=== PATIENT | male | born 1955 | race African-American/Black ===

== ENCOUNTER 2019-07-31 21:53 | Emergency (ER) | payer MEDICAID, OTHER ==
[~2019-07-31] VITALS: Ht 175.3 cm; Wt 106.6 kg
[2019-08-01] MEDS ORDERED: ONDANSETRON HCL 4 MG/2 ML VIAL IV ONE (00:15)
[2019-08-01] MEDS ORDERED: MORPHINE SULFATE 4 MG/ML SYR/VIAL IV ONE ×2 (00:15→01:45)
[2019-08-01] MEDS ORDERED: ETOMIDATE (2MG/ML) 20ML VIAL IV ONE (00:30)
[2019-08-01] MEDS: MORPHINE SULFATE 4 MG/ML SYR/VIAL ONE ×2 (00:33→01:02)
[2019-08-01] MEDS ORDERED: LORazepam 2MG/ML-1ML VIAL ONE (00:36)
[2019-08-01] MEDS: HALOPERIDOL LACTATE 5 MG/ML INJ VIAL ONE ×2 (00:41→01:05)
[2019-08-01] MEDS: diphenhdrAMINE HCL 50 MG/1 ML VL ONE ×2 (00:42→01:05)
[2019-08-01] MEDS ORDERED: HALOPERIDOL LACTATE 5 MG/ML INJ VIAL IM ONE (01:45)
[2019-08-01] MEDS ORDERED: diphenhdrAMINE HCL 50 MG/1 ML VL IV ONE (01:45)
[2019-08-01] MEDS ORDERED: LORazepam 2MG/ML-1ML VIAL IV ONE (01:45)
[2019-08-01] MEDS ORDERED: SODIUM CHLORIDE 0.9% 1,000 ML IV ONE ×3 (02:00→03:30)
[2019-08-01] MEDS ORDERED: THIAMINE 100mg/ml INJ (200mg/2ml VIAL) IV ONE ×2 (02:00→03:15)
[2019-08-01 02:30] VITALS: BP 153/98
[2019-08-01] MEDS ORDERED: FOLIC ACID 1 MG, MULTIPLE VITAMIN 10 ML, MAGNESIUM SULF SDV 50% 8 MEQ, THIAMINE INJ 100... INJ SCH ×10 (12:00)
== END 2019-08-01 04:33 | disposition home or self-care (01) ==
LOC: ER 21:57
DX: S43.004A Unspecified dislocation of right shoulder joint, initial encounter (principal); I10 Essential (primary) hypertension; Y04.0XXA Assault by unarmed brawl or fight, initial encounter; Y93.89 Activity, other specified; Y92.89 Other specified places as the place of occurrence of the external cause; Y99.8 Other external cause status
CPT/HCPCS: 23650; 73020; 73030; 96365; 96372; 96375; 96376; 99152; 99153; 99285; J1200; J1630; J2060; J2270; J2405; J3411; J3475; J7030

== ENCOUNTER 2020-08-10 01:55 | Inpatient (IN) | payer MEDICARE, MEDICAID ==
[~2020-08-10] VITALS: Ht 175.3 cm; Wt 107.8 kg
[2020-08-10 02:46] LABS: Basophils # (auto) 0.1 10 ^3/uL (0-0.2); Basophils % (auto) 0.9 % (0.0-2.0); Eosinophils # (auto) 0.1 10 ^3/uL (0-0.8); Eosinophils % (auto) 1.3 % (0.0-7.0); Hematocrit 40.7 % (41.0-53.0); Hemoglobin 13.2 g/dL (13.5-17.5); Lymphocytes # (auto) 1.6 10 ^3/uL (0.4-5.4); Lymphocytes % (auto) 20.7 % (10.0-50.0); Mean Corpuscular Hemoglobin 29.2 pg (28.0-32.0); Mean Corpuscular Hgb Conc. 32.5 g/dL (32.0-36.0); Mean Corpuscular Volume 89.8 fL (80.0-100.0); Monocytes # (auto) 0.9 10 ^3/uL (0-1.3); Monocytes % (auto) 12.2 % (0.0-12.0); Neutrophils # (auto) 4.9 10 ^3/uL (1.6-8.6); Neutrophils % (auto) 64.9 % (37.0-80.0); Nucleated Red Blood Cells % 0.1 %; Platelet Count (auto) 232 10^3/uL (140-450); Red Blood Cells 4.53 10^6/uL (4.5-5.90); Red Cell Distribution Width 18.3 % (11.8-14.3); White Blood Cell 7.5 10^3/uL (4.4-10.8)
[2020-08-10 03:04] LABS: Albumin 2.8 g/dL (3.4-5.0); BUN/Creatinine Ratio 14.1; Calcium 8.8 mg/dL (8.5-10.1); Potassium 4.4 mmol/L (3.5-5.1)
[2020-08-10 03:09] LABS: Bilirubin, Total 0.9 mg/dL (0.2-1.0); Total Protein 7.2 g/dL (6.4-8.2)
[2020-08-10 03:10] LABS: INR 1.28 (0.9-1.15); Partial Thromboplastin Time 26.9 sec (23.0-31.2)
[2020-08-10] MEDS ORDERED: ACETAMINOPHEN 325 MG TAB PO PRN (05:45)
[2020-08-10] MEDS ORDERED: NITROGLYCERIN 0.4 MG SL TAB SL PRN (05:45)
[2020-08-10] MEDS ORDERED: FUROSEMIDE 20 MG/2 ML VIAL IV ONE (05:45)
[2020-08-10] MEDS ORDERED: TEMAZEPAM 15 MG CAP PO PRN (05:45)
[2020-08-10] MEDS ORDERED: ONDANSETRON HCL 4 MG/2 ML VIAL IV PRN (05:45)
[2020-08-10] MEDS ORDERED: MORPHINE SULF INJ 2 MG/ML SYRINGE 1ML IV PRN (05:45)
[2020-08-10] MEDS ORDERED: FUROSEMIDE 40 MG/4 ML VIAL IV ONE (06:00)
[2020-08-10 07:47] LABS: Urine Bacteria NONE SEEN /hpf (None Seen); Urine Blood 3+ /uL (Negative); Urine Budding Yeast OCCASIONAL /hpf (None Seen); Urine Mucus FEW (None Seen); Urine Specific Gravity 1.015 (1.001-1.035); Urine WBC 1 /hpf (0 - 3)
[2020-08-10] MEDS ORDERED: amLODIPine BESYLATE 5 MG TAB PO SCH (10:00)
[2020-08-10] MEDS ORDERED: FUROSEMIDE 40 MG TAB PO SCH (10:00)
[2020-08-10] MEDS: AZITHROMYCIN 500MG/ 250ML 250 ML IV SCH (10:44)
[2020-08-10] MEDS: CARVEDILOL 3.125 MG TAB PO SCH (10:44)
[2020-08-10] MEDS: ENOXAPARIN SOD 30 MG/0.3 ML SYRINGE SC SCH (10:45)
[2020-08-10] MEDS ORDERED: DEXTROSE (50%) 50ML SYRG IV PRN (15:30)
[2020-08-10 16:07] VITALS: BP 140/71
[2020-08-10 16:40] VITALS: BP 140/71
[2020-08-10 17:00] VITALS: BP 110/80
[2020-08-10] MEDS: InsuLIN REG 1unit/0.01ml Soln (100units/ml) SC SCH ×2 (17:00→22:00)
[2020-08-10] MEDS: ACCU-CHEK COMFORT CURVE STRIP VI SCH (17:00)
[2020-08-10] MEDS: FUROSEMIDE 40 MG/4 ML VIAL IV SCH (18:04)
[2020-08-10] MEDS: SPIRONOLACTONE 25 MG TAB PO SCH (18:04)
[2020-08-10] MEDS ORDERED: FUROSEMIDE 20 MG/2 ML VIAL IV SCH (20:00)
[2020-08-10 22:00] VITALS: BP 108/64
[2020-08-11] MEDS: CARVEDILOL 3.125 MG TAB PO SCH ×3 (00:10→23:00)
[2020-08-11] MEDS: SACUBITRIL-VALSARTAN 24mg/26mg TAB PO SCH ×3 (00:10→23:01)
[2020-08-11] MEDS: ACCU-CHEK COMFORT CURVE STRIP VI SCH ×5 (00:11→23:01)
[2020-08-11 05:00] VITALS: BP 101/79
[2020-08-11] MEDS: InsuLIN REG 1unit/0.01ml Soln (100units/ml) SC SCH ×4 (06:21→22:00)
[2020-08-11] MEDS: FUROSEMIDE 40 MG/4 ML VIAL IV SCH ×2 (06:23→17:34)
[2020-08-11] MEDS: SPIRONOLACTONE 25 MG TAB PO SCH ×2 (06:29→17:35)
[2020-08-11 06:41] LABS: Basophils # (auto) 0 10 ^3/uL (0-0.2); Basophils % (auto) 0.5 % (0.0-2.0); Eosinophils # (auto) 0.1 10 ^3/uL (0-0.8); Eosinophils % (auto) 1.6 % (0.0-7.0); Hemoglobin 12.7 g/dL (13.5-17.5); Lymphocytes # (auto) 1.6 10 ^3/uL (0.4-5.4); Lymphocytes % (auto) 21.7 % (10.0-50.0); Mean Corpuscular Hemoglobin 29.9 pg (28.0-32.0); Mean Corpuscular Hgb Conc. 33.5 g/dL (32.0-36.0); Mean Corpuscular Volume 89.2 fL (80.0-100.0); Monocytes # (auto) 0.9 10 ^3/uL (0-1.3); Monocytes % (auto) 12.5 % (0.0-12.0); Neutrophils # (auto) 4.5 10 ^3/uL (1.6-8.6); Neutrophils % (auto) 63.7 % (37.0-80.0); Nucleated Red Blood Cells % 0.1 %; Platelet Count (auto) 225 10^3/uL (140-450); Red Blood Cells 4.25 10^6/uL (4.5-5.90); Red Cell Distribution Width 18.4 % (11.8-14.3); White Blood Cell 7.1 10^3/uL (4.4-10.8)
[2020-08-11 06:52] LABS: Albumin 2.6 g/dL (3.4-5.0); Potassium 4.4 mmol/L (3.5-5.1)
[2020-08-11 07:00] LABS: BUN/Creatinine Ratio 15.6; Bilirubin, Total 0.9 mg/dL (0.2-1.0); Calcium 8.3 mg/dL (8.5-10.1)
[2020-08-11] MEDS ORDERED: ADENOSINE 99 MG in GIVE UN-DILUTED 0 ML IV STA (08:06)
[2020-08-11 09:00] VITALS: BP 126/92
[2020-08-11] MEDS: ENOXAPARIN SOD 30 MG/0.3 ML SYRINGE SC SCH (10:24)
[2020-08-11] MEDS: AZITHROMYCIN 500MG/ 250ML 250 ML IV SCH (10:24)
[2020-08-11] MEDS: HYDROcodone-ACET 5/325MG TAB PO PRN (12:06)
[2020-08-11 13:00] VITALS: BP 107/56
[2020-08-11] MEDS ORDERED: MORPHINE SULF INJ 2 MG/ML SYRINGE 1ML IV PRN (15:00)
[2020-08-11 17:00] VITALS: BP 126/65
[2020-08-11 22:00] VITALS: BP 118/60
[2020-08-12] MEDS: HYDROcodone-ACET 5/325MG TAB PO PRN (01:51)
[2020-08-12 05:00] VITALS: BP 117/77
[2020-08-12] MEDS: FUROSEMIDE 40 MG/4 ML VIAL IV SCH ×2 (06:38→17:25)
[2020-08-12] MEDS: InsuLIN REG 1unit/0.01ml Soln (100units/ml) SC SCH ×4 (06:38→22:00)
[2020-08-12] MEDS: ACCU-CHEK COMFORT CURVE STRIP VI SCH ×4 (06:39→22:00)
[2020-08-12] MEDS: SPIRONOLACTONE 25 MG TAB PO SCH ×2 (06:39→17:25)
[2020-08-12 06:51] LABS: Basophils # (auto) 0 10 ^3/uL (0-0.2); Basophils % (auto) 0.6 % (0.0-2.0); Eosinophils # (auto) 0.1 10 ^3/uL (0-0.8); Hematocrit 41.3 % (41.0-53.0); Hemoglobin 13.7 g/dL (13.5-17.5); Lymphocytes # (auto) 1.2 10 ^3/uL (0.4-5.4); Lymphocytes % (auto) 14.9 % (10.0-50.0); Mean Corpuscular Hemoglobin 29.7 pg (28.0-32.0); Mean Corpuscular Hgb Conc. 33.3 g/dL (32.0-36.0); Mean Corpuscular Volume 89.2 fL (80.0-100.0); Monocytes # (auto) 0.9 10 ^3/uL (0-1.3); Monocytes % (auto) 10.8 % (0.0-12.0); Neutrophils # (auto) 5.9 10 ^3/uL (1.6-8.6); Neutrophils % (auto) 72.7 % (37.0-80.0); Nucleated Red Blood Cells % 0.1 %; Platelet Count (auto) 218 10^3/uL (140-450); Red Blood Cells 4.63 10^6/uL (4.5-5.90); Red Cell Distribution Width 18.4 % (11.8-14.3); White Blood Cell 8.2 10^3/uL (4.4-10.8)
[2020-08-12] MEDS ORDERED: ATO40T PO (06:56)
[2020-08-12 07:00] LABS: Potassium 4.2 mmol/L (3.5-5.1)
[2020-08-12] MEDS ORDERED: HYDR-4798 PO (07:00)
[2020-08-12] MEDS ORDERED: CLON0.2D6 PO (07:00)
[2020-08-12] MEDS ORDERED: TIZA4CAP PO (07:00)
[2020-08-12] MEDS ORDERED: AMLO-489 PO (07:00)
[2020-08-12] MEDS ORDERED: IBUP800T27 PO (07:00)
[2020-08-12] MEDS ORDERED: PHEN37.563 PO (07:07)
[2020-08-12] MEDS ORDERED: DICL1GEL72 EX (07:07)
[2020-08-12 07:12] LABS: Albumin 2.4 g/dL (3.4-5.0); BUN/Creatinine Ratio 13.2; Calcium 8.6 mg/dL (8.5-10.1); Total Protein 6.2 g/dL (6.4-8.2)
[2020-08-12 07:28] LABS: Bilirubin, Total 1.5 mg/dL (0.2-1.0)
[2020-08-12 08:48] VITALS: BP 133/76
[2020-08-12] MEDS: SACUBITRIL-VALSARTAN 24mg/26mg TAB PO SCH ×2 (09:17→22:00)
[2020-08-12] MEDS: AZITHROMYCIN 500MG/ 250ML 250 ML IV SCH (09:17)
[2020-08-12] MEDS: ENOXAPARIN SOD 30 MG/0.3 ML SYRINGE SC SCH (09:18)
[2020-08-12] MEDS: CARVEDILOL 3.125 MG TAB PO SCH ×2 (09:18→22:00)
[2020-08-12 11:18] LABS: Amphetamine Screen, Urine NEGATIVE (NEGATIVE); Barbiturate Scree,Urine NEGATIVE (NEGATIVE); Benzodiazephine Screen, Urine NEGATIVE (NEGATIVE); Cannabinoid Screen, Urine NEGATIVE (NEGATIVE); Cocaine Screen, Urine NEGATIVE (NEGATIVE); Opiate Scree,Urine NEGATIVE (NEGATIVE); Phencyclidine Screen, Urine NEGATIVE (NEGATIVE)
[2020-08-12 13:00] VITALS: BP 98/64
[2020-08-12] MEDS ORDERED: PHYTONADIONE(VitK) ORAL Susp 10mg/10ml(1mg/ml) PO ONE (15:45)
[2020-08-12] MEDS ORDERED: LORazepam 0.5 MG TAB PO PRN (15:45)
[2020-08-12] MEDS: LACTULOSE 20Gm/30ML SOLN PO PRN (16:25)
[2020-08-12 17:00] VITALS: BP 102/63
[2020-08-12] MEDS: Glucerna Carbsteady SHAKE Vanilla 8oz PO SCH (17:54)
[2020-08-12 22:00] VITALS: BP 92/57
[2020-08-13 05:00] VITALS: BP 109/84
[2020-08-13] MEDS: FUROSEMIDE 40 MG/4 ML VIAL IV SCH ×3 (06:00→18:17)
[2020-08-13] MEDS: InsuLIN REG 1unit/0.01ml Soln (100units/ml) SC SCH ×4 (06:08→21:58)
[2020-08-13] MEDS: ACCU-CHEK COMFORT CURVE STRIP VI SCH ×4 (06:09→21:59)
[2020-08-13 06:55] LABS: Basophils # (auto) 0 10 ^3/uL (0-0.2); Basophils % (auto) 0.6 % (0.0-2.0); Eosinophils # (auto) 0.1 10 ^3/uL (0-0.8); Eosinophils % (auto) 1.4 % (0.0-7.0); Hematocrit 40.7 % (41.0-53.0); Hemoglobin 13.5 g/dL (13.5-17.5); Lymphocytes # (auto) 1.6 10 ^3/uL (0.4-5.4); Mean Corpuscular Hemoglobin 29.4 pg (28.0-32.0); Mean Corpuscular Hgb Conc. 33.2 g/dL (32.0-36.0); Mean Corpuscular Volume 88.7 fL (80.0-100.0); Monocytes # (auto) 0.9 10 ^3/uL (0-1.3); Monocytes % (auto) 13.4 % (0.0-12.0); Neutrophils % (auto) 60.6 % (37.0-80.0); Nucleated Red Blood Cells % 0.2 %; Platelet Count (auto) 232 10^3/uL (140-450); Red Blood Cells 4.59 10^6/uL (4.5-5.90); Red Cell Distribution Width 18.6 % (11.8-14.3); White Blood Cell 6.7 10^3/uL (4.4-10.8)
[2020-08-13 06:56] LABS: INR 1.32 (0.9-1.15)
[2020-08-13] MEDS: SPIRONOLACTONE 25 MG TAB PO SCH ×2 (07:04→18:17)
[2020-08-13] MEDS: Glucerna Carbsteady SHAKE Vanilla 8oz PO SCH ×3 (08:00→18:16)
[2020-08-13 08:18] LABS: BUN/Creatinine Ratio 15.8; Potassium 4.3 mmol/L (3.5-5.1)
[2020-08-13 08:55] VITALS: BP 110/73
[2020-08-13] MEDS: AZITHROMYCIN 500MG/ 250ML 250 ML IV SCH (09:11)
[2020-08-13] MEDS: ENOXAPARIN SOD 30 MG/0.3 ML SYRINGE SC SCH (09:12)
[2020-08-13] MEDS: SACUBITRIL-VALSARTAN 24mg/26mg TAB PO SCH ×2 (09:12→21:58)
[2020-08-13] MEDS: CARVEDILOL 3.125 MG TAB PO SCH ×2 (09:12→21:58)
[2020-08-13] MEDS: LACTULOSE 20Gm/30ML SOLN PO PRN (09:13)
[2020-08-13 13:06] VITALS: BP 106/60
[2020-08-13] MEDS ORDERED: PHYTONADIONE(VitK) ORAL Susp 10mg/10ml(1mg/ml) PO ONE (13:15)
[2020-08-13 17:01] VITALS: BP 91/62
[2020-08-13] MEDS ORDERED: MANNITOL FTV 25% 12.5 GM/50 ML 50 ML IV ONE (17:45)
[2020-08-13] MEDS: TAMSULOSIN HYDROCHLORIDE 0.4 MG CAP PO SCH (18:17)
[2020-08-13 21:46] VITALS: BP 110/79
[2020-08-14 04:53] VITALS: BP 93/66
[2020-08-14] MEDS: FUROSEMIDE 40 MG/4 ML VIAL IV SCH ×2 (05:40→18:00)
[2020-08-14] MEDS: SPIRONOLACTONE 25 MG TAB PO SCH ×2 (05:40→18:00)
[2020-08-14] MEDS: InsuLIN REG 1unit/0.01ml Soln (100units/ml) SC SCH ×3 (06:24→17:00)
[2020-08-14] MEDS: ACCU-CHEK COMFORT CURVE STRIP VI SCH ×3 (06:24→17:00)
[2020-08-14] MEDS: ENOXAPARIN SOD 30 MG/0.3 ML SYRINGE SC SCH (07:30)
[2020-08-14 07:39] LABS: Basophils # (auto) 0 10 ^3/uL (0-0.2); Basophils % (auto) 0.3 % (0.0-2.0); Eosinophils # (auto) 0.1 10 ^3/uL (0-0.8); Eosinophils % (auto) 1.7 % (0.0-7.0); Hematocrit 38.9 % (41.0-53.0); Lymphocytes # (auto) 1.6 10 ^3/uL (0.4-5.4); Lymphocytes % (auto) 26.2 % (10.0-50.0); Mean Corpuscular Hemoglobin 29.4 pg (28.0-32.0); Mean Corpuscular Hgb Conc. 33.4 g/dL (32.0-36.0); Monocytes # (auto) 0.9 10 ^3/uL (0-1.3); Monocytes % (auto) 14.6 % (0.0-12.0); Neutrophils # (auto) 3.4 10 ^3/uL (1.6-8.6); Neutrophils % (auto) 57.2 % (37.0-80.0); Platelet Count (auto) 220 10^3/uL (140-450); Red Blood Cells 4.42 10^6/uL (4.5-5.90); Red Cell Distribution Width 18.3 % (11.8-14.3)
[2020-08-14 07:54] LABS: INR 1.28 (0.9-1.15); Partial Thromboplastin Time 27.2 sec (23.0-31.2)
[2020-08-14] MEDS: Glucerna Carbsteady SHAKE Vanilla 8oz PO SCH ×3 (08:00→18:00)
[2020-08-14 08:01] LABS: BUN/Creatinine Ratio 14.6; Calcium 9.2 mg/dL (8.5-10.1); Potassium 3.9 mmol/L (3.5-5.1)
[2020-08-14 09:00] VITALS: BP 128/70
[2020-08-14] MEDS: SACUBITRIL-VALSARTAN 24mg/26mg TAB PO SCH (09:04)
[2020-08-14] MEDS: CARVEDILOL 3.125 MG TAB PO SCH (09:06)
[2020-08-14] MEDS ORDERED: IODIXANOL 320MG/ML 100ML BTL IV ONE (11:25)
[2020-08-14] MEDS ORDERED: LIDOCAINE 2%HCL (LOCAL ANESTH.) INJ 20ML MDV ONE (11:25)
[2020-08-14] MEDS ORDERED: ANGIOMAX 250 MG VIAL IV ONE (11:41)
[2020-08-14] MEDS ORDERED: fentaNYL CITRATE 100 MCG/2 ML VL ONE (11:41)
[2020-08-14] MEDS ORDERED: HEPARIN SODIUM (PORCINE) 5000 UNITS/ML 1ML VIAL ONE (11:41)
[2020-08-14] MEDS ORDERED: VERAPAMIL 2.5MG/ML INJ 2ML VIAL IV ONE (11:41)
[2020-08-14] MEDS ORDERED: MIDAZOLAM HCL 1MG/1ML-2 ML VIAL ONE (11:42)
[2020-08-14] MEDS ORDERED: SODIUM CHL 0.9% 0 ML ONE (11:42)
[2020-08-14] MEDS: AZITHROMYCIN 500MG/ 250ML 250 ML IV SCH (13:00)
[2020-08-14 17:00] VITALS: BP 112/61
[2020-08-14] MEDS: TAMSULOSIN HYDROCHLORIDE 0.4 MG CAP PO SCH (18:00)
== END 2020-08-14 18:12 | disposition home or self-care (01) | DRG 286 ==
LOC: ER 02:01 → TELE 02:02 → DOU IN ADS 14:21 → TELE-EAST 08-11 01:20
PROVIDERS: ADMIT Nurse Practitioner; ATTEND Internal Medicine
PROC: 4A023N7 Measurement of Cardiac Sampling and Pressure, Left Heart, Percutaneous Approach (ICD-10-PCS; principal; 2020-08-14)
PROC: B211YZZ Fluoroscopy of Multiple Coronary Arteries using Other Contrast (ICD-10-PCS; 2020-08-14)
PROC: B215YZZ Fluoroscopy of Left Heart using Other Contrast (ICD-10-PCS; 2020-08-14)
DX: I25.10 Atherosclerotic heart disease of native coronary artery without angina pectoris (principal); I50.43 Acute on chronic combined systolic (congestive) and diastolic (congestive) heart failure; I13.0 Hypertensive heart and chronic kidney disease with heart failure and stage 1 through stage 4 chronic kidney disease, or unspecified chronic kidney disease; D68.9 Coagulation defect, unspecified; E44.0 Moderate protein-calorie malnutrition; N13.2 Hydronephrosis with renal and ureteral calculous obstruction; M19.90 Unspecified osteoarthritis, unspecified site; Z20.822 Contact with and (suspected) exposure to COVID-19; E66.01 Morbid (severe) obesity due to excess calories; E88.09 Other disorders of plasma-protein metabolism, not elsewhere classified; I42.8 Other cardiomyopathies; N18.31 Chronic kidney disease, stage 3a; E11.22 Type 2 diabetes mellitus with diabetic chronic kidney disease; E78.5 Hyperlipidemia, unspecified; Y90.9 Presence of alcohol in blood, level not specified; F10.20 Alcohol dependence, uncomplicated; R31.0 Gross hematuria; Z79.84 Long term (current) use of oral hypoglycemic drugs; Z68.38 Body mass index [BMI] 38.0-38.9, adult; Z82.49 Family history of ischemic heart disease and other diseases of the circulatory system; Z83.3 Family history of diabetes mellitus; Z91.14 Patient's other noncompliance with medication regimen
CPT/HCPCS: 36415; 71045; 74018; 74176; 78452; 80048; 80053; 80061; 80307; 81001; 82962; 83036; 83880; 84443; 84484; 85025; 85379; 85610; 85730; 87086; 93005; 93017; 93306; 93971; 96365; 96366; 96372; 96375; 99152; G0378; J0153; J1815; J2250; Q9967

== ENCOUNTER → 2020-11-09 | Outpatient (CLI) | payer MEDICARE, MEDICAID ==
[~2020-11-09] MED LIST: AMLO-489 PO; ATO40T PO; CLON0.2D6 PO; DICL1GEL72 EX; HYDR-4798 PO; IBUP800T27 PO; PHEN-1325 PO; TIZA4CAP PO
== END | disposition home or self-care (01) ==
LOC: XYW 09:46
PROVIDERS: ATTEND Internal Medicine
DX: I35.8 Other nonrheumatic aortic valve disorders (principal); I51.7 Cardiomegaly; I42.9 Cardiomyopathy, unspecified
CPT/HCPCS: 93306

== ENCOUNTER → 2021-02-01 | Outpatient (CLI) | payer MEDICARE, MEDICAID | END | disposition home or self-care (01) | LOC: XYW 09:12 | PROVIDERS: ATTEND Internal Medicine | DX: I08.2 Rheumatic disorders of both aortic and tricuspid valves (principal); I50.22 Chronic systolic (congestive) heart failure | CPT/HCPCS: 93306 ==

== ENCOUNTER 2024-02-17 10:53 | Inpatient (IN) | payer MEDICARE, MEDICAID ==
[~2024-02-17] VITALS: Ht 175.3 cm; Wt 132.7 kg
[~2024-02-17 10:53] MED LIST changes: -AMLO-489 PO; +AMLO1TAB22 PO; -ATO40T PO; +ATOR-507 PO; +IBUP-1456 PO; -IBUP800T27 PO
[2024-02-17] MEDS: FUROSEMIDE 100 MG/10ML VIAL IV ONE (11:45)
[2024-02-17 12:19] LABS: Urine Bacteria None Seen /hpf (None Seen)
[2024-02-17 12:23] LABS: Basophils # (auto) 0.1 10 ^3/uL (0-0.2); Basophils % (auto) 0.9 % (0.0-2.0); Eosinophils # (auto) 0.2 10 ^3/uL (0-0.8); Eosinophils % (auto) 1.6 % (0.0-7.0); Hematocrit 46.8 % (41.0-53.0); Hemoglobin 15.9 g/dL (13.5-17.5); Lymphocytes # (auto) 1.6 10 ^3/uL (0.4-5.4); Lymphocytes % (auto) 15.9 % (10.0-50.0); Mean Corpuscular Hemoglobin 33.9 pg (28.0-32.0); Mean Corpuscular Volume 99.5 fL (80.0-100.0); Monocytes # (auto) 0.9 10 ^3/uL (0-1.3); Monocytes % (auto) 9.4 % (0.0-12.0); Neutrophils # (auto) 7.1 10 ^3/uL (1.6-8.6); Neutrophils % (auto) 72.2 % (37.0-80.0); Nucleated Red Blood Cells % 0.1 %; Platelet Count (auto) 286 10^3/uL (140-450); Red Cell Distribution Width 16.1 % (11.8-14.3); White Blood Cell 9.8 10^3/uL (4.4-10.8)
[2024-02-17 12:36] LABS: Urine Blood 3+ /uL (Negative); Urine Clarity Clear (Clear); Urine Color Light-Yellow (Yellow); Urine Protein, UAD TRACE (Negative); Urine Specific Gravity 1.019 (1.001-1.035); Urine Urobilinogen Normal (Negative); Urine WBC 3 /hpf (0 - 3)
[2024-02-17 12:42] LABS: Albumin 3.9 g/dL (3.2-4.8); Alkaline Phosphatase 97 U/L (46-116); Anion Gap 5 (5-15); Aspartate Aminotransferase 9 U/L (13-40); BUN/Creatinine Ratio 10.6 (10.0-20.0); Blood Urea Nitrogen 14 mg/dL (9-23); Calcium 9.8 mg/dL (8.7-10.4); Carbon Dioxide 28 mmol/L (20-30); Chloride 105 mmol/L (98-107); Glucose 107 mg/dL (74-106); Potassium 4.2 mmol/L (3.5-5.1); Sodium 138 mmol/L (136-145)
[2024-02-17 12:43] LABS: Bilirubin, Total 1.1 mg/dL (0.2-1.0); Total Protein 7.5 g/dL (5.7-8.2)
[2024-02-17 12:47] LABS: Alanine Aminotransferase < 9 U/L (7-40)
[2024-02-17 12:57] VITALS: PULSE 96; RESP 16; O2SAT 90
[2024-02-17] MEDS ORDERED: ONDANSETRON HCL 4 MG/2 ML VIAL IV PRN (14:45)
[2024-02-17] MEDS ORDERED: ACETAMINOPHEN 325 MG TAB PO PRN (14:45)
[2024-02-17] MEDS ORDERED: hydrALAZINE HCL 20 MG/ML VL IV PRN (14:45)
[2024-02-17] MEDS ORDERED: DOCUSATE SOD 100 MG CAP PO PRN (14:45)
[2024-02-17] MEDS ORDERED: HYDROcodone-ACET 5/325MG TAB PO PRN (14:45)
[2024-02-17] MEDS ORDERED: NITROGLYCERIN 0.4 MG SL TAB SL PRN (15:30)
[2024-02-17] MEDS ORDERED: MORPHINE SULFATE INJ 2 MG/ml SYRG IV PRN (15:30)
[2024-02-17] MEDS: OXYCODONE W/ ACETAMINOPHEN 5/325MG TABLET PO PRN (16:45)
[2024-02-17 19:40] VITALS: PULSE 96; RESP 16; O2SAT 90; O2SAT 94
[2024-02-17] MEDS: SODIUM CHLOR 0.9% PF (SALINE LOCK) 10ML VIAL/SYR IV SCH (22:00)
[2024-02-17] MEDS: ATORVASTATIN 20 MG TAB PO SCH (23:02)
[2024-02-17] MEDS: CARVEDILOL 3.125 MG TAB PO SCH (23:03)
[2024-02-18] VITALS (10 sets, daily range): BP systolic 118–127; BP diastolic 70–80; PULSE 19–98; RESP 16–20; TEMP 97.6–98.6; O2SAT 93–97
[2024-02-18] MEDS ORDERED: DAPA1TAB4 PO (03:26)
[2024-02-18] MEDS ORDERED: LEVO50TA7 PO (03:26)
[2024-02-18] MEDS ORDERED: CARV6.2551 PO (03:26)
[2024-02-18] MEDS ORDERED: FURO40TA4 PO (03:26)
[2024-02-18 07:07] LABS: Basophils # (auto) 0 10 ^3/uL (0-0.2); Lymphocytes # (auto) 1.4 10 ^3/uL (0.4-5.4); Monocytes # (auto) 0.7 10 ^3/uL (0-1.3)
[2024-02-18 07:13] LABS: Basophils % (auto) 0.5 % (0.0-2.0); Eosinophils # (auto) 0.2 10 ^3/uL (0-0.8); Eosinophils % (auto) 2.1 % (0.0-7.0); Hematocrit 46.2 % (41.0-53.0); Hemoglobin 15.6 g/dL (13.5-17.5); Lymphocytes % (auto) 18.2 % (10.0-50.0); Mean Corpuscular Hgb Conc. 33.9 g/dL (32.0-36.0); Mean Corpuscular Volume 100.3 fL (80.0-100.0); Monocytes % (auto) 8.8 % (0.0-12.0); Neutrophils # (auto) 5.2 10 ^3/uL (1.6-8.6); Neutrophils % (auto) 70.4 % (37.0-80.0); Nucleated Red Blood Cells % 0.2 %; Platelet Count (auto) 274 10^3/uL (140-450); Red Blood Cells 4.61 10^6/uL (4.5-5.90); Red Cell Distribution Width 16.2 % (11.8-14.3); White Blood Cell 7.5 10^3/uL (4.4-10.8)
[2024-02-18 07:45] LABS: Alanine Aminotransferase 42 U/L (7-40); Albumin 3.8 g/dL (3.2-4.8); Alkaline Phosphatase 113 U/L (46-116); Anion Gap 6 (5-15); Aspartate Aminotransferase 47 U/L (13-40); Blood Urea Nitrogen 19 mg/dL (9-23); Calcium 9.3 mg/dL (8.7-10.4); Carbon Dioxide 28 mmol/L (20-30); Chloride 102 mmol/L (98-107); Glucose 108 mg/dL (74-106); Potassium 4.7 mmol/L (3.5-5.1); Sodium 136 mmol/L (136-145)
[2024-02-18 07:46] LABS: Total Protein 7.2 g/dL (5.7-8.2)
[2024-02-18] MEDS: ASPirin 81 mg TAB PO SCH (09:46)
[2024-02-18] MEDS: FUROSEMIDE 40 MG/4 ML VIAL IV SCH ×2 (09:47→17:43)
[2024-02-18] MEDS: ENOXAPARIN SOD 30 MG/0.3 ML SYRINGE SC ONE (10:30)
[2024-02-18 11:34] LABS: Folate (Folic Acid) 8.62 ng/mL (>5.38)
[2024-02-18] MEDS: ENOXAPARIN SOD 40 MG/0.4 ML SYRINGE SC ONE (11:56)
[2024-02-18] MEDS: LEVOTHYROXINE SODIUM 50 MCG TAB PO ONE (11:58)
[2024-02-18] MEDS ORDERED: IPRATROPIUM BROM 0.5 MG/2.5ML INH SOL NEB PRN (19:00)
[2024-02-18] MEDS ORDERED: ALBUTEROL SULF 2.5 MG/0.5ML(0.5%) NEB SOLN NEB PRN (19:00)
[2024-02-18] MEDS: FUROSEMIDE INJECTION 100 MG in D5W 5% 100 ML IV SCH (19:19)
[2024-02-18] MEDS: DOXYCYCLINE 100MG/250ML 250 ML IV SCH (21:38)
[2024-02-18] MEDS: cefTRIAXone 1GM/50ML D5W 50 ML IV ONE (21:38)
[2024-02-18] MEDS: ENOXAPARIN SOD 40 MG/0.4 ML SYRINGE SC SCH (21:39)
[2024-02-18] MEDS: ATORVASTATIN 20 MG TAB PO SCH (21:39)
[2024-02-18] MEDS ORDERED: ENOXAPARIN SOD 30 MG/0.3 ML SYRINGE SC SCH (22:00)
[2024-02-18] MEDS: HYDROcodone-ACET 5/325MG TAB PO PRN (23:15)
[2024-02-19] VITALS (10 sets, daily range): BP systolic 109–147; BP diastolic 63–85; PULSE 60–103; RESP 16–22; TEMP 97.8–98.6; O2SAT 91–100
[2024-02-19] MEDS: LEVOTHYROXINE SODIUM 50 MCG TAB PO SCH (06:11)
[2024-02-19 06:33] LABS: Basophils # (auto) 0 10 ^3/uL (0-0.2); Eosinophils # (auto) 0.2 10 ^3/uL (0-0.8); Mean Corpuscular Volume 99.5 fL (80.0-100.0); Nucleated Red Blood Cells % 0.1 %
[2024-02-19 06:35] LABS: Basophils % (auto) 0.5 % (0.0-2.0); Eosinophils % (auto) 2.4 % (0.0-7.0); Hematocrit 45.6 % (41.0-53.0); Hemoglobin 15.6 g/dL (13.5-17.5); Lymphocytes # (auto) 1.5 10 ^3/uL (0.4-5.4); Lymphocytes % (auto) 17.8 % (10.0-50.0); Mean Corpuscular Hgb Conc. 34.1 g/dL (32.0-36.0); Monocytes # (auto) 0.9 10 ^3/uL (0-1.3); Monocytes % (auto) 10.4 % (0.0-12.0); Neutrophils # (auto) 5.9 10 ^3/uL (1.6-8.6); Neutrophils % (auto) 68.9 % (37.0-80.0); Platelet Count (auto) 267 10^3/uL (140-450); Red Blood Cells 4.59 10^6/uL (4.5-5.90); White Blood Cell 8.5 10^3/uL (4.4-10.8)
[2024-02-19 06:52] LABS: Alanine Aminotransferase 31 U/L (7-40); Albumin 3.8 g/dL (3.2-4.8); Alkaline Phosphatase 108 U/L (46-116); Anion Gap 5 (5-15); Aspartate Aminotransferase 22 U/L (13-40); BUN/Creatinine Ratio 14.7 (10.0-20.0); Blood Urea Nitrogen 22 mg/dL (9-23); Calcium 9.7 mg/dL (8.7-10.4); Carbon Dioxide 30 mmol/L (20-30); Chloride 99 mmol/L (98-107); Cholesterol 148 mg/dL (< 200); Glucose 103 mg/dL (74-106); HDL Cholesterol 35 mg/dL (40-59); LDL Cholesterol 86 mg/dL (< 100); Magnesium 1.8 mg/dL (1.6-2.6); Potassium 4.2 mmol/L (3.5-5.1); Sodium 134 mmol/L (136-145); Triglycerides 150 mg/dL (< 150)
[2024-02-19 06:53] LABS: Bilirubin, Total 0.7 mg/dL (0.2-1.0); Total Protein 7.4 g/dL (5.7-8.2)
[2024-02-19 08:21] LABS: COVID19 ANTIGEN SOFIA FIA NEGATIVE (NEGATIVE); Rapid Influenza A Negative (Negative)
[2024-02-19 08:22] LABS: Rapid Influenza B Negative (Negative)
[2024-02-19] MEDS: cefTRIAXone 1GM/50ML D5W 50 ML IV SCH (08:56)
[2024-02-19] MEDS: SACUBITRIL-VALSARTAN 24mg/26mg TAB PO SCH (11:08)
[2024-02-19] MEDS: METOPROLOL SUCCINATE XL 50 MG TAB PO SCH (11:08)
[2024-02-19] MEDS ORDERED: POTA-36 PO (18:16)
[2024-02-19] MEDS ORDERED: METO25TA93 PO (18:16)
[2024-02-19] MEDS ORDERED: FURO40TA4 PO (18:16)
[2024-02-19] MEDS ORDERED: SACU1TAB PO (18:17)
[2024-02-20 01:00] VITALS: BP 120/72; PULSE 100; RESP 18; TEMP 98; O2SAT 91
[2024-02-20 05:00] VITALS: BP 109/66; PULSE 106; RESP 20; TEMP 98.4; O2SAT 94
[2024-02-20 09:00] VITALS: BP 123/92; PULSE 103; RESP 18; TEMP 98.5; O2SAT 90
[2024-02-20] MEDS: PNEUMOCOCCAL VACC POLYS 25 MCG/0.5 ML VIAL IM ONE (09:49)
[2024-02-20 09:51] LABS: Chloride 99 mmol/L (98-107); Potassium 4.2 mmol/L (3.5-5.1); Sodium 133 mmol/L (136-145)
[2024-02-20 09:52] LABS: Anion Gap 3 (5-15); Carbon Dioxide 31 mmol/L (20-30)
[2024-02-20 09:53] LABS: Calcium 9.7 mg/dL (8.7-10.4)
[2024-02-20 09:57] LABS: Glucose 134 mg/dL (74-106)
[2024-02-20 09:58] LABS: BUN/Creatinine Ratio 16.4 (10.0-20.0); Blood Urea Nitrogen 25 mg/dL (9-23)
[2024-02-20] MEDS ORDERED: FUROSEMIDE 40 MG/4 ML VIAL IV SCH (18:00)
== END 2024-02-20 11:00 | disposition home health service (06) | DRG 177 ==
LOC: ER 10:53 → TELE 15:21 → TELE-WESTW 23:49
PROVIDERS: ADMIT Internal Medicine; ATTEND Internal Medicine
DX: J15.69 Pneumonia due to other Gram-negative bacteria (principal); I50.23 Acute on chronic systolic (congestive) heart failure; J96.01 Acute respiratory failure with hypoxia; I13.0 Hypertensive heart and chronic kidney disease with heart failure and stage 1 through stage 4 chronic kidney disease, or unspecified chronic kidney disease; Z68.41 Body mass index [BMI] 40.0-44.9, adult; E78.5 Hyperlipidemia, unspecified; Z20.822 Contact with and (suspected) exposure to COVID-19; E66.01 Morbid (severe) obesity due to excess calories; N18.31 Chronic kidney disease, stage 3a; E03.9 Hypothyroidism, unspecified; F10.20 Alcohol dependence, uncomplicated; I25.10 Atherosclerotic heart disease of native coronary artery without angina pectoris; R73.03 Prediabetes; Z79.899 Other long term (current) drug therapy; Y90.9 Presence of alcohol in blood, level not specified
CPT/HCPCS: 36415; 71045; 71250; 80048; 80053; 80061; 81001; 82607; 82746; 83036; 83735; 83880; 84443; 84484; 85025; 87081; 87426; 87804; 93005; 93306; 96374; 99291; G0378; J3490; J7060

== ENCOUNTER → 2024-05-10 | Outpatient (CLI) | payer MEDICARE, MEDICAID ==
[~2024-05-10] VITALS: Ht 172.7 cm; Wt 115.7 kg
[~2024-05-10] MED LIST changes: +DAPA1TAB4 PO; +FURO40TA4 PO; +LEVO50TA7 PO; +SACU1TAB PO
[2024-05-10] MEDS: ADENOSINE 97 MG in GIVE UN-DILUTED 0 ML IV STA (09:30)
--- NOTE | 2024-05-10 14:40 | DVHSR ---
APPROVED REPORT Exam: Nuclear Stress Test BMI: 0 Stress Test Details HR Max Heart Rate (APMHR): 152.547736 bpm Target HR (85% APMHR): 129.466276 bpm BP ECG Stress ECG Conclusion There is multiple area of heterogeneous reduced uptake of the anterior as well as the inferior wall w hich was seen both in resting but worse at stress level, with the exception of the apical area which shows complete reversible defect. Severely reduced ejection fraction at 30%. Impression: Multiple area of reduced uptake during resting and stress phase which could represent ol d myocardial infarct, with the exception of the apical area which appeared to be ischemic and reversi ble. Severely reduced left ventricular ejection fraction of 30%, low to moderate risk study. NM EXAM: Myocardial Perfusion REST/STRESS Imaging Protocol: Rest Tc-99m/Stress Tc-99m 1 day Resting Data Rest SPECT myocardial perfusion imaging was performed in supine position 60 minutes following the int ravenous injection of 12.1 mCi of Tc-99m Sestamibi. Time of rest injection: 08 Time of rest imagin Administration Route: IV Administration Site: Right Arm Pharmacologic Stress Pharmacologic stress test was performed by injecting Adenosine mg IV push followed by the intravenou s injection of 12.1 mCi of Tc-99m Sestamibi. Time of stress injection: 925 Time of stress imagin Administration Route: IV Administration Site: Right Arm Gated Stress SPECT was performed 60 minutes after stress injection. The images were gated to evaluate regional wall motion and calculate left ventricular ejection fracti on. Stress only was performed in the Supine position. Nuclear Conclusion ECG Findings: negative for ischemia Clinical Findings: negative for ischemia Nuclear Findings: positive for ischemia Exercise Capacity: not assessed Left Ventricular Function: abnormal Risk Study: moderate There is multiple area of heterogeneous reduced uptake of the anterior as well as the inferior wall w hich was seen both in resting but worse at stress level, with the exception of the apical area which shows complete reversible defect. Severely reduced ejection fraction at 30%. Impression: Multiple area of reduced uptake during resting and stress phase which could represent ol d myocardial infarct, with the exception of the apical area which appeared to be ischemic and reversi ble. Severely reduced left ventricular ejection fraction of 30%, low to moderate risk study.
== END | disposition home or self-care (01) ==
LOC: XYW 06:58
PROVIDERS: ATTEND Internal Medicine
DX: I99.8 Other disorder of circulatory system (principal); I42.8 Other cardiomyopathies; I50.9 Heart failure, unspecified
CPT/HCPCS: 78452; 93017; A9500; J0153